=== PATIENT | male | born 1960 | race Caucasian/White ===

== ENCOUNTER 2022-11-29 15:38 | Emergency (ER) | payer OTHER, SELFPAY ==
--- NOTE | 2022-11-29 15:58 | XR_ITS ---
FINAL REPORT CLINICAL HISTORY: fall yesterday, lt rib pain FINDINGS: A PA view of the chest and oblique views of the left ribs were obtained. There is no prior exam for comparison. The cardiac and mediastinal silhouettes are within normal limits. There are low lung volumes. There is left basilar atelectasis. There is no pneumothorax. Oblique views of the left ribs reveal no displaced rib fracture. IMPRESSION: No acute left rib fracture and no pneumothorax. Reviewed, Interpreted and Dictated by Benita Patiño MD Transcribed by Chun Cohen Authenticated and [facility]
[2022-11-29 16:00] VITALS: BP 160/94; PULSE 81; RESP 20; TEMP 36.6; O2SAT 99; BMI 29.6
--- NOTE | 2022-11-29 16:32 | EXP.UTC ---
Discharge Plan Disposition Patient Disposition: Home, Self-Care Condition: Good Prescriptions Prescriptions: No Action hydrocodone-acetaminophen 1 TAB tablet 1 tab PO Q6HP PRN (Reason: Moderate To Severe Pain) Qty: 8 0RF atorvastatin 80 mg tablet 80 mg PO DAILY meloxicam 15 mg tablet 15 mg PO DAILY lisinopril 5 mg tablet 5 mg PO DAILY metformin 500 mg tablet extended release 24 hr 500 mg PO DAILY sildenafil (pulm.hypertension) 20 mg tablet 20 mg PO DAILY Referrals Follow up/Referrals: Salty Sadler MD [Primary Care Provider] - See instructions Activity Restrictions/Add. Instructions Additional Instructions/Restrictions: Take your prescribed pain medication as directed Follow up with your Family Doctor for further treatment and evaluation as discussed Cool compress to area may help with pain Use Incintive Spirometer as you was instructed in the [facility] Make sure to take deep breaths and cough to clear mucous Straight to ER if any life threatening symptoms Clinical Impressions Clinical Impression: Contusion of ribs Qualifiers: Encounter type: initial encounter Laterality: left Qualified Code(s): S20.212A - Contusion of left front wall of thorax, initial encounter Instructions Patient Instructions: How to Use an Incentive Spirometer, DI for Rib Contusion Discharge ED Provider: Keyla Jaime [facility] [place] HPI General Stated complaint: AO 11/28@0830 Fell injured Left ribs Mode of Arrival: Ambulatory Source of Information: Patient Limitations: No Limitations Time Seen by Provider: 11/29/22 16:15 Description of Symptoms (Recalled from Triage Doc. by RN): Fell on couch arm at home yesterday and hurt left ribs HEENT Symptoms (Recalled from RN notes): No Resp Symptoms (Recalled from RN notes): No Skin Symptoms (Recalled from RN notes): No MS Symptoms (Recalled from RN notes): No Functional Status (Recalled from RN notes): n/a History of Present Illness Provider Complaint: Patient states that he lives in [facility] and tripped yesterday opening the fridge and fell States that he landed on the arm of the couch on his left ribs States that ever since falling has been having pain in his left ribs with cough and certain movements States that family was worried he may have broken a rib so he came in to get it checked Related Data Home Medications Medication Instructions Recorded Confirmed atorvastatin 80 mg tablet 80 mg PO DAILY High cholesterol 11/29/22 11/29/22 lisinopril 5 mg tablet 5 mg PO DAILY High blood pressure 11/29/22 11/29/22 meloxicam 15 mg tablet 15 mg PO DAILY Pain 11/29/22 11/29/22 metformin 500 mg tablet,extended 500 mg PO DAILY Diabetes 11/29/22 11/29/22 release 24 hr sildenafil (pulm.hypertension) 20 20 mg PO DAILY . 11/29/22 11/29/22 mg tablet Previous Rx's Medication Instructions Recorded hydrocodone 5 mg-acetaminophen 325 1 tab PO Q6HP PRN Moderate To // mg tablet Severe Pain #8 tabs Allergies Allergy/AdvReac Type Severity Reaction Status Date / Time azithromycin Allergy Verified 11/29/22 16:09 erythromycin base Allergy Verified 11/29/22 16:09 Worker's Comp Is this a Worker's Comp case?: No [facility] Disclaimer: The information contained in this section may have been updated after the patient was seen, as this information can be updated by other users. Social History Smoking Status: Unknown if ever smoked alcohol intake: never current occupational status: employed Travel in the last 8 weeks: None ROS Obtained: Yes All systems reviewed & no additional complaints except as documented and Yes Systems reviewed as appropriate & no additional complaints except as documented ENT Ears, Nose, Mouth, and Throat: Reports system reviewed and no additional complaints, except as documented and Reports as per HPI Cardiovascular Cardiovascular: Reports system reviewed and no additional complaints
[2022-11-29 17:35] VITALS: BP 160/94; PULSE 81; RESP 20; TEMP 36.6; O2SAT 99
== END 2022-11-29 17:40 | disposition home or self-care (01) ==
PROVIDERS: Emergency Provider Nurse Practitioner; PCP Family Medicine
DX: S20.212A Contusion of left front wall of thorax, initial encounter (principal); W01.198A Fall on same level from slipping, tripping and stumbling with subsequent striking against other object, initial encounter
CPT/HCPCS: 71101; 99212; 99213; G0463

== ENCOUNTER 2023-08-30 12:24 | Observation (INO) | payer MEDICARE, OTHER, SELFPAY ==
[2023-08-30] VITALS (14 sets, daily range): BP systolic 105–170; BP diastolic 65–103; PULSE 76–93; RESP 11–18; TEMP 36.4–36.8; O2SAT 92–97; BMI 30.1; BMI 30.8
--- NOTE | 2023-08-30 12:21 | ECG_ITS ---
APPROVED REPORT Exam: Resting ECG HR:94 bpm ECG Measurements Heart Rate 94 AXES WY 174 P 67 QRSd 92 QRS 94 QT 343 T 56 QTc 395 Conclusion SINUS RHYTHM WITH SINUS ARRHYTHMIA BORDERLINE RIGHT AXIS DEVIATION [QRS AXIS > 90] BORDERLINE ECG UNCONFIRMED REPORT Electronically signed by : Ernesto Abarca MD 09/01/2023 08:02:27
--- NOTE | 2023-08-30 12:26 | XR_ITS ---
FINAL REPORT CLINICAL HISTORY: CP COMPARISON: 11/29/2022 FINDINGS: SINGLE-VIEW CHEST The heart size is normal. The mediastinum is normal. The lungs are clear. There is no pneumothorax. IMPRESSION: No acute cardiopulmonary process. Reviewed, Interpreted and Dictated by César Lopez MD Transcribed by Halie Mars Authenticated and [facility]
--- NOTE | 2023-08-30 12:27 | HMH.EDGENADL ---
Discharge Plan Disposition Patient Disposition: Admitted Condition: Fair Clinical Impressions Clinical Impression: Angina pectoris, unstable, Hyperglycemia Discharge ED Provider: Dinesh Cabrera General Adult HPI General Chief complaint: Chest Pain Stated complaint: chest pain Time Seen by Provider: 08/30/23 12:26 History of Present Illness HPI narrative: Patient is a 65-year-old male with past medical history of hypertension, hyperlipidemia who presents emergency department for evaluation of chest pain. Onset was subacute over the last 3 to 4 weeks, substernal radiating down his left arm, intermittent, moderate to severe in intensity. It occurs both at rest and exertion. No other acute complaints at this time. Related Data Home Medications Medication Instructions Recorded Confirmed atorvastatin 80 mg tablet 80 mg PO DAILY High cholesterol 11/29/22 08/30/23 lisinopril 5 mg tablet 5 mg PO DAILY High blood pressure 11/29/22 08/30/23 meloxicam 15 mg tablet 15 mg PO DAILY Pain 11/29/22 08/30/23 metformin 500 mg tablet,extended 500 mg PO DAILY Diabetes 11/29/22 08/30/23 release 24 hr sildenafil (pulm.hypertension) 20 20 mg PO DAILY 11/29/22 08/30/23 mg tablet aspirin 81 mg tablet,delayed 81 mg PO DAILY 08/30/23 08/30/23 release diphenhydramine HCl 12.5 mg/5 mL 12.5 mg PO HS PRN Sleep 08/30/23 08/30/23 oral elixir gabapentin 400 mg capsule 400 mg PO DAILY 08/30/23 08/30/23 magnesium 200 mg tablet 400 mg PO DAILY 08/30/23 08/30/23 melatonin 10 mg tablet 10 mg PO HS PRN Sleep 08/30/23 08/30/23 omeprazole 40 mg capsule,delayed 40 mg PO DAILY 08/30/23 08/30/23 release tizanidine 2 mg capsule 15 mg PO HS 08/30/23 08/30/23 Previous Rx's Medication Instructions Recorded hydrocodone 5 mg-acetaminophen 325 1 tab PO Q6HP PRN Moderate To 10/14/19 mg tablet Severe Pain #8 tabs Allergies Allergy/AdvReac Type Severity Reaction Status Date / Time azithromycin Allergy Verified 08/30/23 12:36 erythromycin base Allergy Verified 08/30/23 12:36 [facility] Disclaimer: The information contained in this section may have been updated after the patient was seen, as this information can be updated by other users. Social History (Updated 11/29/22 @ 17:54 by Keyla Jaime APRN) Smoking Status: Never smoker alcohol intake: never current occupational status: employed Travel in the last 8 weeks: None ROS Obtained: Yes Systems reviewed as appropriate & no additional complaints except as documented Physical Exam General General appearance: alert and in no apparent distress Head Head exam: atraumatic and normocephalic Eye Eye exam: Present PERRL and EOMI ENT ENT exam: Present mucous membranes moist Neck Neck exam: Present normal inspection Chest Chest inspection: Present normal inspection and symmetric chest wall rise Respiratory Respiratory exam: Present normal lung sounds bilaterally; Absent respiratory distress Cardiovascular Cardiovascular exam: Present regular rate and normal rhythm Abdominal Exam Abdominal exam: Present soft Extremities Exam Extremities exam: Present normal inspection Neurological Exam Neurological exam: Present alert Psychiatric Psychiatric exam: Present normal affect Skin Skin exam: Present warm and dry Medical Decision Making Derrick Inquiry Pt receiving controlled substance: No Vital Signs: 08/30/23 12:25 08/30/23 12:28 08/30/23 12:30 Temperature 98.3 F Temperature Source Oral Pulse Rate 92 H 91 H Pulse Rate [Left Radial] 93 H Respiratory Rate 16 16 18 Blood Pressure 159/102 H 131/96 H Blood Pressure [Right Arm] 170/103 H Blood Pressure Mean 121 107 Blood Pressure Mean [Right Arm] 125 Blood Pressure Source Blood Pressure Source [Right Arm] Automatic Cuff Blood Pressure Position Blood Pressure Position [Right Arm] Sitting 02 Sat by Pulse Oximetry 96 96 94 L Oxygen Delivery Method Room Air 08/30/23 13:00 08/30/23 13:15 08/30/23 13:30 Temperature Temperature Source Pulse Rate 91 H 87 89 Pulse Rate [Left Radial] Respiratory Rate 11 L 16 11 L Blood Pressure 121/81 106/70 L 105/77 L Blood Pressure [Right Arm] Blood Pressure Mean 82 Blood Pressure Mean [Right Arm] Blood Pressure Source Blood Pressure Source [Right Arm] Blood Pressure Position Blood Pressure Position [Right Arm] 02 Sat by Pulse Oximetry 93 L 92 L 93 L Oxygen Delivery Method Room Air Room Air 08/30/23 13:45 08/30/23 14:00 08/30/23 14:15 Temperature Temperature Source Pulse Rate 86 86 83 Pulse Rate [Left Radial] Respiratory Rate 16 16 Blood Pressure 117/65 117/80 125/73 Blood Pressure [Right Arm] Blood Pressure Mean 83 92 84 Blood Pressure Mean [Right Arm] Blood Pressure Source Blood Pressure Source [Right Arm] Blood Pressure Position Blood Pressure Position [Right Arm] 02 Sat by Pulse Oximetry 94 L 92 L 93 L Oxygen Delivery Method 08/30/23 14:30 08/30/23 15:00 Temperature 98.2 F Temperature Source Oral Pulse Rate 79 82 Pulse Rate [Left Radial] Respiratory Rate 18 Blood Pressure 132/80 128/79 Blood Pressure [Right Arm] Blood Pressure Mean 89 Blood Pressure Mean [Right Arm] Blood Pressure Source Automatic Cuff Blood Pressure Source [Right Arm] Blood Pressure Position Sitting Blood Pressure Position [Right Arm] 02 Sat by Pulse Oximetry 93 L Oxygen Delivery Method Room Air Lab Data Lab Results 08/30/23 12:30: WBC 8.2, RBC 5.19, Hgb 16.7, Hct 47.5, MCV 91.6, MCH 32.2 H, MCHC 35.2, RDW 13.3, Plt Count 198, MPV 9.1, Neut % (Auto) 53.4, Lymph % (Auto) 34.9, [place] % (Auto) 4.3, Eos % (Auto) 6.7, Baso % (Auto) 0.7, Neut # (Auto) 4.4, Lymph # (Auto) 2.9, [place] # (Auto) 0.4, Eos # (Auto) 0.6 H, Baso # (Auto) 0.1, Sodium 134 L, Potassium 3.8, Chloride 100, Carbon Dioxide 25, Anion Gap 12.8, BUN 16, Creatinine 0.90, Estimated Creat Clear 91, Estimated GFR 84, Est GFR ( Amer) 102, Glucose 265 H, Calcium 9.4, Total Bilirubin 1.1, AST 67 H, ALT 51, Alkaline Phosphatase 63, Troponin I < 0.01, Total Protein 8.5 H, Albumin 5.1 H, Globulin 3.4 H, Albumin/Globulin Ratio 1.5 08/30/23 12:30 08/30/23 12:30 Orders (Tests/Meds): ED MEDICATIONS Generic Name Dose Route Start Last Admin Trade Name Freq PRN Reason Stop Dose Admin Aspirin 81 mg 08/31/23 09:00 Aspirin Ec 81mg Tablet PO 09/30/23 08:59 DAILY VAISHNAVI Atorvastatin Calcium 80 mg 12/27/23 21:00 Atorvastatin 40mg Tablet PO 09/29/23 20:59 HS VAISHNAVI Carvedilol 3.125 mg 08/30/23 21:00 Carvedilol 3.125mg Tablet PO 09/29/23 20:59 BID VAISHNAVI Enoxaparin Sodium 90 mg 08/30/23 14:15 Enoxaparin 100mg/Ml Syringe 1 mg/kg (90 mg) 09/29/23 14:14 SQ Q12H VAISHNAVI Nitroglycerin 0.4 mg 08/30/23 12:26 08/30/23 12:42 Nitroglycerin 0.4mg Sl Tablet SL 09/29/23 12:25 0.4 mg Q5MINP PRN Administration Chest Pain Discontinued Medications Generic Name Dose Route Start Last Admin Trade Name Freq PRN Reason Stop Dose Admin Aspirin 324 mg 08/30/23 12:26 08/30/23 12:42 Aspirin 81mg Chewable Tablet PO 08/30/23 12:27 324 mg ONCE ONE Administration Diphenhydramine HCl 50 mg 08/30/23 13:59 Diphenhydramine 50mg/Ml Vial IV 08/30/23 14:00 ONCE ONE Morphine Sulfate 4 mg 08/30/23 12:26 08/30/23 12:42 Morphine 4mg/Ml Syringe IV 08/30/23 12:27 4 mg ONCE ONE Administration ORDERS Category Date Time Status Cardiology Consult [Consult to Cardiology] [CONS] Stat Cons 08/30/23 13:34 Active Consult to Cardiology [CONS] Routine Cons 08/30/23 14:03 Active CXR --portable [XR chest portable] Stat Exams 08/30/23 12:26 Completed CBC w/Auto Diff [Complete Blood Count Auto Diff] Stat Lab 08/30/23 12:30 Completed CMP [Comprehensive Metabolic Panel] Stat Lab 08/30/23 12:30 Completed Complete Blood Count Auto Diff AMLAB Lab 08/31/23 06:00 Ordered Comprehensive Metabolic Panel AMLAB Lab 08/31/23 06:00 Ordered Magnesium AMLAB Lab 08/31/23 06:00 Ordered Trop I [Troponin I] Stat Lab 08/30/23 12:30 Completed Troponin I Q3H Lab 08/30/23 15:37 Received Troponin I Q3H Lab 08/30/23 18:30 Ordered CA echo doppler complete Routine Y 08/30/23 14:01 Completed ECG initial [place] Routine Y 08/30/23 12:21 Completed ECG Data Tracing #1: Independently interpreted by me, rate is 94, rhythm is regular, axis is rightward deviated, no ST elevation in anatomical contiguous leads, QTc 395. HEART Score History (anamnesis): Highly suspicious ECG: Non-specific disturbance Age: 45-65 years Risk factors: 1-2 risk factors Troponin: </= normal limit HEART Score: 5 Medical Decision Narrative: In summary patient is a 65-year-old male with past medical history described above presents emergency department for evaluation of chest pain. Patient is hemodynamically stable nontoxic-appearing upon arrival, afebrile. Differential diagnosis includes ACS, cardiac chest pain, noncardiac chest pain, among others. Workup will be conducted with hematologic labs, chest x-ray, EKG, troponin. Initial interventions include nitroglycerin, aspirin, morphine. Initial workup reviewed by me, hematologic labs show no leukocytosis, elevated blood glucose. Initial troponin is nonactionable. Upon repeat evaluation patient had significant improvement of his pain status post pharmacologic intervention. The case was discussed with cardiology and they evaluated patient and deemed he would benefit from urgent heart catheterization. The case was discussed with hospital medicine who admit the patient to their service for continued evaluation at this time. Critical Care Critical Care Time Critical Care Time: No
[2023-08-30 12:42] LABS: Basophils # 0.1 K/mm3 (0-0.2); Basophils % 0.7 % (0.1-2.0); Eosinophils # 0.6 K/mm3 (0.0-0.4); Eosinophils % 6.7 % (0.1-12.0); Hematocrit 47.5 % (42.0-52.0); Hemoglobin 16.7 g/dL (14.1-18.0); Lymphocytes # 2.9 K/mm3 (0.7-4.5); Lymphocytes % 34.9 % (10-50); Mean Corpuscular HGB Conc 35.2 g/dL (31.8-35.4); Mean Corpuscular Hemoglobin 32.2 pg (27.0-31.2); Mean Corpuscular Volume 91.6 fl (80-94); Mean Platelet Volume 9.1 fl (7.4-10.4); Monocytes # 0.4 K/mm3 (0.1-1.0); Monocytes % 4.3 % (1.7-9.3); Neutrophils # 4.4 K/mm3 (1.8-7.8); Neutrophils % 53.4 % (37.0-80.0); Platelet Count 198 K/mm3 (142-424); Red Blood Count 5.19 M/mm3 (4.60-6.20); Red Cell Distribution Width 13.3 % (11.5-17.5); White Blood Count 8.2 K/mm3 (4.8-10.8)
[2023-08-30] MEDS: ASPIRIN 81MG CHEWABLE TABLET 324 MG PO (12:42)
[2023-08-30] MEDS: NITROGLYCERIN 0.4MG SL TABLET 0.400000000000000022 MG SL ×2 (12:42→19:43)
[2023-08-30] MEDS: MORPHINE 4MG/ML SYRINGE 4 MG IV (12:42)
[2023-08-30 13:05] LABS: Alanine Aminotransferase 51 U/L (12-78); Albumin Level 5.1 g/dl (3.5-5.0); Albumin/Globulin Ratio 1.5 (1.1-1.8); Alkaline Phosphatase 63 U/L (38-126); Anion Gap 12.8 mEq/L (5-15); Aspartate Amino Transferase 67 U/L (17-59); Bilirubin,Total 1.1 mg/dl (0.2-1.3); Blood Urea Nitrogen 16 mg/dl (9-20); Calcium 9.4 mg/dl (8.4-10.2); Carbon Dioxide 25 mmol/L (22.0-30.0); Chloride 100 mmol/L (98-107); Creatinine Clearance Estimated 91 mL/min (50-200); Estimated Glomerular Filt Rate 84 ml/min (>60); GFR (African American) 102 ML/MIN (>60); Globulin 3.4 g/dL (1.3-3.2); Glucose 265 mg/dl (74-100); Potassium 3.8 mmoL/L (3.5-5.1); Sodium 134 mmol/L (136-145); Total Protein,Serum 8.5 g/dl (6.3-8.2)
--- NOTE | 2023-08-30 13:09 | PC.NURSE ---
PORTABLE XRAY AT BEDSIDE
[2023-08-30 13:18] LABS: Troponin I < 0.01 ng/ml (0.00-0.034)
--- NOTE | 2023-08-30 13:20 | PC.NURSE ---
pt states NTG has helped PS 10/14
--- NOTE | 2023-08-30 13:49 | PC.NURSE ---
POPEYE SHARPE FROM CARDS AT BEDSIDE
--- NOTE | 2023-08-30 14:01 | CA_ITS ---
APPROVED REPORT EXAM: Comprehensive 2D, Doppler, and color-flow Echocardiogram Bottle Carrier: Krystyna Hendricks RVT Ht: 5 ft 8 in Wt: 198lbs BSA: 2.03 BP: 198/89 mmHg Indications: CP,HTN,HLD 2D Dimensions LA Volume 34.20 mL LA Volume Index 16.76 mL/m2 (M/F) 16-34 M-Mode Dimensions RVDd 3.10 cm (0.9-2.6) LA Diam 3.55 cm (1.9-4.0) LVDd 3.82 cm (3.5-5.7) LVDs 2.70 cm (3.5-5.7) IVSd 1.73 cm (0.6-1.1) PWd 0.52 cm (0.6-1.1) EF (Teich) 56.90% FS 29.30% EDV (Teich) 62.70 mL TAPSE 2.17 (<1.7) ESV (Teich) 27.00 mL LV Diastology E Decel Time 290 (160-240 msec) E/A Ratio 0.9 Aortic Valve ANNA Index 1.66 cm2/m2 AoV Peak Rush. 129.0 (50-130 cm/s) AO Peak GR. 6.60 mmHg AO Mean GR. 3.80 (<5 mmHg) AO VTI 22.1 (18-25 cm) ANNA (VTI) 3.45 (2.5-4.5 cm2) Mitral Valve MV E Max Rush. 64.0 (40-130 cm/s) MV A Velocity 72.0 (40-130 cm/s) E/A Ratio 0.89 MV PHT 85.0 ms Pulmonary Valve PV Peak Velocity 89.0 (50-150 cm/s) Left Ventricle The left ventricle is normal size. The left ventricular systolic function is normal. The left ventricular ejection fraction is within the normal range. There is increased LV wall thickness. Regional wall motion is difficult to estimate due to technically difficult study, but grossly no obvious wall motion abnormalities are noted. The left ventricular diastolic function is normal. LVEF is 55%. Right Ventricle The right ventricle is mildly dilated. The right ventricular systolic function is normal. Atria The left atrium size is normal. The right atrium size is normal. There is no Doppler evidence of interatrial shunt. Aortic Valve The aortic valve is mildly thickened. There is no aortic valvular stenosis. Trace aortic regurgitation. Mitral Valve The mitral valve leaflets are mildly thickened. No evidence of mitral valve stenosis. Trace mitral regurgitation. Tricuspid Valve The tricuspid valve leaflets are thin and pliable. Trace tricuspid regurgitation. There is insufficient TR jet to estimate RVSP. Pulmonic Valve The pulmonary valve is normal in structure. Trace pulmonic regurgitation. Great Vessels The aortic root is normal in size. The ascending aorta is not well-visualized. IVC is normal in size and collapses >50% with inspiration. Pericardium There is no pericardial effusion. Other Information Study Quality: Technically Difficult Conclusion Technically difficult study due to poor acoustic windows. Normal biventricular systolic function. Mild RV dilation. No significant valvular stenosis or regurgitation. Electronically signed by : July Diaz MD 08/31/2023 09:13:00
--- NOTE | 2023-08-30 14:52 | P.CONCA_ITS ---
History of Present Illness History of Present Illness Consult date: 08/30/23 Requesting physician: Daniel Bell Consult reason: chest pain Chief complaint: chest pain History of present illness: 63-year-old white male with past medical history of hypertension and hyperlipidemia presented to emergency department today with complaints of 2 weeks of intermittent chest pain progressive and worsening in nature. Patient reports that 2 weeks ago had an episode of severe midsternal chest pressure radiating to the left arm associated with shortness of breath. Reports did not go to the ER at that time. Since then has had intermittent episodes of chest pain often with activity and at rest that is relieved with nitroglycerin. Patient reports he is using 2-3 nitro a day for chest pain. Continues to have o ngoing shortness of breath with exertion since initial event a few weeks ago. Upon presentation to ER EKG was normal sinus rhythm rate of 94 without acute ischemic changes noted. Labs as follow: WBC 8.2, hemoglobin 16.7, sodium 134, potassium 3.8, creatinine 0.9, troponin 0.01. Patient reports has a strong family history of coronary artery disease with both mother and father dying from MIs and brother and sister both requiring stenting. Denies current or former smoker, reports uses tobacco chew. Given atient's medical history and symptoms patient will be admitted for unstable angina and we will proceed with left heart catheterization. Discussed risk versus benefits with patient and he is agreeable. Echocardiogram is pending. [facility] Disclaimer: The information contained in this section may have been updated after the patient was seen, as this information can be updated by other users. Social History (Updated 11/29/22 @ 17:54 by Keyla Jaime APRN) Smoking Status: Never smoker alcohol intake: never current occupational status: employed Travel in the last 8 weeks: None Review of Systems Review of Systems Review of systems:: pertinent systems reviewed and negative unless documented below Constitutional Constitutional: Reports system reviewed and no additional complaints, except as documented *Cardiovascular Cardiovascular: Reports chest pain and Reports dyspnea *Respiratory Respiratory: Reports system reviewed and no additional complaints, except as d ocumented and Reports dyspnea *Gastrointestinal Gastrointestinal: Reports system reviewed and no additional complaints, except as documented *Neurologic Neurologic: Reports system reviewed and no additional complaints, except as documented and Denies confusion Psychiatric Psychiatric: Reports system reviewed and no additional complaints, except as documented and Denies confusion Exam Data for Last 24 hours Vital signs and Labs for Last 24 Hours: Temp Pulse Resp BP Pulse Ox O2 Del Method 98.3 F 79 16 132/80 93 L Room Air 08/30/23 12:25 08/30/23 14:30 08/30/23 14:00 08/30/23 14:30 08/30/23 14:30 08/30/23 13:30 Laboratory Results - last 24 hr 08/30/23 12:30: WBC 8.2, RBC 5.19, Hgb 16.7, Hct 47.5, MCV 91.6, MCH 32.2 H, MCHC 35.2, RDW 13.3, Plt Count 198, MPV 9.1, Neut % (Auto) 53.4, Lymph % (Auto) 34.9, [place] % (Auto) 4.3, Eos % (Auto) 6.7, Baso % (Auto) 0.7, Neut # (Auto) 4.4, Lymph # (Auto) 2.9, [place] # (Auto) 0.4, Eos # (Auto) 0.6 H, Baso # (Auto) 0.1, Sodium 134 L, Potassium 3.8, Chloride 100, Carbon Dioxide 25, Anion Gap 12.8, BUN 16, Creatinine 0.90, Estimated Creat Clear 91, Estimated GFR 84, Est GFR ( Amer) 102, Glucose 265 H, Calcium 9.4, Total Bilirubin 1.1, AST 67 H, ALT 51, Alkaline Phosphatase 63, Troponin I < 0.01, Total Protein 8.5 H, Albumin 5.1 H, Globulin 3.4 H, Albumin/Globulin Ratio 1.5 I & O for Last 24 hours: Intake & Output 08/27/23 08/28/23 08/29/23 08/30/23 23:59 23:59 23:59 23:59 Weight 198 lb Constitutional Constitutional: no acute distress *Routine Respiratory Exam Respiratory: Present CTA bilaterally and symmetric chest movement *Routine Cardiovascular Exam Cardiovascular: Present RRR, Normal S1 and Normal S2 *Routine Abdominal Exam Abdominal: Present soft and normoactive bowel sounds; Absent tenderness *Routine Extremities Exam Extremities: Present full ROM and normal capillary refill; Absent edema *Routine Skin Exam Skin: Present intact, dry and warm Detailed Neck Exam: Thyroids Thyroid: Absent bruit Meds Home Medications and Allergies Home Medications Medication Instructions Recorded Confirmed Type hydrocodone 5 mg-acetaminophen 325 1 tab PO Q6HP PRN Moderate To 06/17/19 08/30/23 Rx mg tablet Severe Pain #8 tabs atorvastatin 80 mg tablet 80 mg PO DAILY High cholesterol 11/29/22 08/30/23 History lisinopril 5 mg tablet 5 mg PO DAILY High blood pressure 11/29/22 08/30/23 History meloxicam 15 mg tablet 15 mg PO DAILY Pain 11/29/22 08/30/23 History metformin 500 mg tablet,extended 500 mg PO DAILY Diabetes 11/29/22 08/30/23 History release 24 hr sildenafil (pulm.hypertension) 20 20 mg PO DAILY . 11/29/22 08/30/23 History mg tablet gabapentin 400 mg capsule 400 mg PO DAILY 08/30/23 08/30/23 History omeprazole 40 mg capsule,delayed 40 mg PO DAILY 08/30/23 08/30/23 History release New Prescriptions to Start Prescriptions: Allergies Allergy/AdvReac Type Severity Reaction Status Date / Time azithromycin Allergy Verified 08/30/23 12:36 erythromycin base Allergy Verified 08/30/23 12:36 Assessment and Plan *Assessment and plan (1) Unstable angina: Status: Acute Category: Medical Code(s): I20.0 - Unstable angina (2) HTN (hypertension): Status: Acute Category: Medical Code(s): I10 - Essential (primary) hypertension (3) Hyperlipidemia: Status: Acute Category: Medical Code(s): E78.5 - Hyperlipidemia, unspecified Plan Unstable angina CCS 3 -Will proceed with left heart catheterization tomorrow morning 08/31/2023. D iscussed risk versus benefits with patient he is agreeable -Patient will be loaded with aspirin 324 mg p.o. and given Lovenox 1 mg/kg twice daily. Start Coreg 3.125 mg p.o. twice daily and continue atorvastatin 80 mg p.o. daily. -Echocardiogram pending Hypertension -Well-controlled. Continue lisinopril 5 mg p.o. daily Hyperlipidemia -Continue atorvastatin 80 mg p.o. daily CV summary 08/30/2023: We will proceed with left heart catheterization tomorrow for unstable angina. Please continue meds as listed above.
--- NOTE | 2023-08-30 15:01 | PC.NURSE ---
CALLED REPORT TO DALLAS CORDOBA
--- NOTE | 2023-08-30 15:08 | PC.NURSE ---
arrived by w/c from ED
--- NOTE | 2023-08-30 15:16 | EXP.HP ---
History of Present Illness *Admission Date: 08/30/23 *Reason for visit:: chest pain *History of present illness: Mr. Mary is a 63-year-old male with history significant for hypertension and hyperlipidemia. He presented to the ER complaining of some worsening intermittent chest pain over the past few weeks. On further questioning he reports she actually had pain as remote as a year ago with an episode a month ago who referred to his left arm but resolved and he has not sought treatment prior. Describes the pain is midsternal was in association with shortness of breath pain most common with activity that is relieved by nitroglycerin. Denies any nausea, vomiting, syncope. Workup in the ER with unremarkable EKG, initial troponin negative. Labs fairly unremarkable with no acute abnormalities. Patient reports significant family history of coronary artery disease with both his parents dying from MIs. Denies smoking but does chew regularly. Given his nature of unstable angina and characteristic chest pain, medicine was consulted for admission and cardiology consulted for further evaluation. On arrival to the floor, patient states his chest pain is little bit better. He is eating dinner. Stable on room air [facility] Disclaimer: The information contained in this section may have been updated after the patient was seen, as this information can be updated by other users. Social History Smoking Status: Never smoker alcohol intake: never current occupational status: employed Travel in the last 8 weeks: None Review of Systems Review of Systems Review of systems (narrative): 14 point review of systems performed, pertinent positives and negatives as per HPI *Neurologic Neurologic: Reports system reviewed and no additional complaints, except as documented and Denies confusion Psychiatric Psychiatric: Denies confusion Meds Home Medications and Allergies Home Medications Medication Instructions Recorded Confirmed Type hydrocodone 5 mg-acetaminophen 325 1 tab PO Q6HP PRN Moderate To 06/17/19 08/30/23 Rx mg tablet Severe Pain #8 tabs atorvastatin 80 mg tablet 40 mg PO DAILY High cholesterol 11/29/22 08/30/23 History lisinopril 5 mg tablet 5 mg PO DAILY High blood pressure 11/29/22 08/30/23 History meloxicam 15 mg tablet 15 mg PO HS Pain 11/29/22 08/30/23 History metformin 500 mg tablet,extended 500 mg PO HS Diabetes 11/29/22 08/30/23 History release 24 hr aspirin 81 mg tablet,delayed 81 mg PO DAILY 08/30/23 08/30/23 History release diphenhydramine HCl 12.5 mg/5 mL 12.5 mg PO HS PRN Sleep 08/30/23 08/30/23 History oral elixir gabapentin 400 mg capsule See Rx Instructions .Route .COMPLEX 08/30/23 08/30/23 History magnesium 200 mg tablet 400 mg PO DAILY 08/30/23 08/30/23 History melatonin 10 mg tablet 10 mg PO HS PRN Sleep 08/30/23 08/30/23 History omeprazole 40 mg capsule,delayed 40 mg PO DAILY 08/30/23 08/30/23 History release tizanidine 2 mg capsule 15 mg PO HS 08/30/23 08/30/23 History New Prescriptions to Start Prescriptions: Allergies Allergy/AdvReac Type Severity Reaction Status Date / Time azithromycin Allergy Verified 08/30/23 12:36 erythromycin base Allergy Verified 08/30/23 12:36 Exam Data for Last 24 hours Vital signs and Labs for Last 24 Hours: Temp Pulse Resp BP Pulse Ox O2 Del Method 98.2 F 82 18 128/79 93 L Room Air 08/30/23 15:00 08/30/23 15:00 08/30/23 15:00 08/30/23 15:00 08/30/23 14:30 08/30/23 15:00 Laboratory Results - last 24 hr 08/30/23 12:30: WBC 8.2, RBC 5.19, Hgb 16.7, Hct 47.5, MCV 91.6, MCH 32.2 H, MCHC 35.2, RDW 13.3, Plt Count 198, MPV 9.1, Neut % (Auto) 53.4, Lymph % (Auto) 34.9, [place] % (Auto) 4.3, Eos % (Auto) 6.7, Baso % (Auto) 0.7, Neut # (Auto) 4.4, Lymph # (Auto) 2.9, [place] # (Auto) 0.4, Eos # (Auto) 0.6 H, Baso # (Auto) 0.1, Sodium 134 L, Potassium 3.8, Chloride 100, Carbon Dioxide 25, Anion Gap 12.8, BUN 16, Creatinine 0.90, Estimated Creat Clear 91, Estimated GFR 84, Est GFR ( Amer) 102, Glucose 265 H, Calcium 9.4, Total Bilirubin 1.1, AST 67 H, ALT 51, Alkaline Phosphatase 63, Troponin I < 0.01, Total Protein 8.5 H, Albumin 5.1 H, Globulin 3.4 H, Albumin/Globulin Ratio 1.5 I & O for Last 24 hours: Intake & Output 08/27/23 08/28/23 08/29/23 08/30/23 23:59 23:59 23:59 23:59 Weight 89.811 kg Constitutional Constitutional: no acute distress and obese *Routine HEENT Exam Head: Present normocephalic Eye: Present EOMI and PERRL ENT: Present mucous membranes moist *Routine Neck Exam Neck: Present supple; Absent lymphadenopathy *Routine Respiratory Exam Respiratory: Present CTA bilaterally *Routine Cardiovascular Exam Cardiovascular: Present RRR *Routine Abdominal Exam Abdominal: Present soft and normoactive bowel sounds; Absent tenderness *Routine Rectal Exam Rectal:: deferred *Routine Genitalia Exam Genitalia:: deferred *Routine Extremities Exam Extremities: Absent cyanosis, clubbing or edema *Routine Skin Exam Skin: Present warm; Absent rash *Routine Neurological Exam Neurological: Present alert, oriented X3 and moving all extremities; Absent altered mental status Assessment and Plan *Assessment and plan (1) Angina pectoris, unstable: Status: Acute Category: Medical Code(s): I20.0 - Unstable angina (2) HTN (hypertension): Status: Acute Category: Medical Code(s): I10 - Essential (primary) hypertension (3) Hyperlipidemia: Status: Acute Category: Medical Code(s): E78.5 - Hyperlipidemia, unspecified (4) Hyperglycemia: Status: Acute Category: Medical Code(s): R73.9 - Hyperglycemia, unspecified Plan 63-year-old male history of hypertension who presents with unstable angina. Discussed case with ER physician, request admission for cardiology workup and further management. Patient will need serial troponins. Medicine agreed to admit for further management. Cardiology consulted. Problems addressed as follows: Unstable angina Hypertension Hyperlipidemia -Cardiology consulted, appreciate their recommendations. Planning for left heart cath tomorrow. Patient symptoms are highly suggestive of coronary artery disease. Significant family history. CCS of 3. -Patient loaded with aspirin 325 mg daily, continue 85 mg daily. Given Lovenox 1 mg/kg twice daily. Start carvedilol 3.125 mg twice daily. -Continue home Lipitor 80 mg daily -Echocardiogram obtained, formal read pending -Pressures at this time, continue lisinopril 5 mg daily Hyperglycemia -Glucose 265 on initial labs - On metformin at home, history of hyperglycemia. A1c and TSH pending Full code Cardiac diet, n.p.o. at midnight Therapeutic Lovenox
[2023-08-30 16:18] LABS: Troponin I < 0.01 ng/ml (0.00-0.034)
--- NOTE | 2023-08-30 16:29 | HMH.PHAINT1 ---
Pharmacy Intervention Comments: Home med list verified with patient at bedside, spouse via phone, and with external pharmacy list.
[2023-08-30] MEDS: ENOXAPARIN 100MG/ML SYRINGE 90 MG SQ (18:06)
--- NOTE | 2023-08-30 18:24 | PC.NURSE ---
Patient new admit from er with chest pain. patient A&Ox4 and vss
[2023-08-30 18:26] LABS: Thyroid Stimulating Hormone 0.44 uIU/mL (0.465-4.68)
[2023-08-30 19:19] LABS: Troponin I < 0.01 ng/ml (0.00-0.034)
[2023-08-30 20:06] LABS: POC Glucose,Bedside 223 (70-110)
[2023-08-30] MEDS: ATORVASTATIN 40MG TABLET 80 MG PO (20:21)
[2023-08-30] MEDS: MELATONIN 10 MG 10 EACH PO (20:22)
[2023-08-30] MEDS: CARVEDILOL 3.125MG TABLET 3.125 MG PO (20:23)
[2023-08-30] MEDS: GABAPENTIN 400MG CAPSULE 400 MG PO (20:23)
[2023-08-30] MEDS: PATIENT'S OWN HOME MEDICATION (Metformin 500 mg tablet extended release 24 hr) 500 EACH PO (20:24)
--- NOTE | 2023-08-30 21:42 | PC.NURSE ---
RECEIVED ONE 0.4 S.L. NITRO AT 1942 AND RECEIVED COMPLETE RELIEF FROM DULL ACHING LEFT CHEST 12/12.
[2023-08-31] VITALS (14 sets, daily range): BP systolic 102–133; BP diastolic 74–93; PULSE 75–100; RESP 16–18; TEMP 36.1–36.9; O2SAT 93–100; BMI 30.3
[2023-08-31] MEDS: ENOXAPARIN 100MG/ML SYRINGE 90 MG SQ (02:35)
--- NOTE | 2023-08-31 04:43 | PC.NURSE ---
NO FURTHER REPORTS OF CP. NO SOA OR DISCOMFORT NOTED. HAS BEEN NPO SINCE GA FOR LEFT CARDIAC CATH. CONSENT SIGNED.
[2023-08-31 05:18] LABS: POC Glucose,Bedside 146 (70-110)
[2023-08-31 06:32] LABS: Basophils % 0.4 % (0.1-2.0); Eosinophils # 0.6 K/mm3 (0.0-0.4); Eosinophils % 6.4 % (0.1-12.0); Hematocrit 43.7 % (42.0-52.0); Hemoglobin 15.7 g/dL (14.1-18.0); Lymphocytes % 35.3 % (10-50); Mean Corpuscular HGB Conc 35.8 g/dL (31.8-35.4); Mean Corpuscular Hemoglobin 32.6 pg (27.0-31.2); Mean Corpuscular Volume 91.1 fl (80-94); Mean Platelet Volume 9.3 fl (7.4-10.4); Monocytes # 0.5 K/mm3 (0.1-1.0); Monocytes % 5.9 % (1.7-9.3); Neutrophils # 4.4 K/mm3 (1.8-7.8); Neutrophils % 51.9 % (37.0-80.0); Platelet Count 169 K/mm3 (142-424); Red Cell Distribution Width 13.3 % (11.5-17.5); White Blood Count 8.5 K/mm3 (4.8-10.8)
[2023-08-31 06:50] LABS: Chloride 104 mmol/L (98-107); Sodium 138 mmol/L (136-145)
[2023-08-31 06:51] LABS: Potassium 3.6 mmoL/L (3.5-5.1)
[2023-08-31 06:53] LABS: Alanine Aminotransferase 47 U/L (12-78); Albumin Level 4.4 g/dl (3.5-5.0); Albumin/Globulin Ratio 1.5 (1.1-1.8); Alkaline Phosphatase 62 U/L (38-126); Anion Gap 13.6 mEq/L (5-15); Aspartate Amino Transferase 63 U/L (17-59); Blood Urea Nitrogen 16 mg/dl (9-20); Calcium 8.9 mg/dl (8.4-10.2); Carbon Dioxide 24 mmol/L (22.0-30.0); Creatinine Clearance Estimated 94 mL/min (50-200); Estimated Glomerular Filt Rate 97 ml/min (>60); GFR (African American) 117 ML/MIN (>60); Globulin 2.9 g/dL (1.3-3.2); Glucose 150 mg/dl (74-100); Total Protein,Serum 7.3 g/dl (6.3-8.2)
[2023-08-31 06:54] LABS: Magnesium 1.9 mg/dl (1.6-2.3)
--- NOTE | 2023-08-31 07:17 | IR_ITS ---
APPROVED REPORT Patient Location: Inpatient Feeder Loader: MANUELA Quiros RT (R) PROCEDURES Left heart catheterization Left ventriculogram Selective coronary angiogram INDICATION Unstable angina Informed consent was obtained prior to the procedure. COMPLICATIONS NONE Estimated Blood Loss: LESS THAN 10 ML TECHNIQUE One percent lidocaine used to anesthetize the right anterior aspect of the wrist. The right radial artery was accessed via the Seldinger technique. A 6 [place] sheath was placed in the right radial artery. 2.5 mg of Verapamil, 800 mcg of nitroglycerin, 1mg Lidocaine and 5000 U Heparin were given through the arterial sheath. The papa catheter was also used to perform left heart catheterization, left ventriculogram and selective coronary angiogram. At the end of the procedure the sheath was removed good hemostasis was achieved using Traclet band, patient was transferred to the postop holding area in stable condition. ANGIOGRAPHIC RESULTS The left main artery Normal The left anterior descending artery Is proximally normal and has a mild mid vessel systolic 20 to 30% myocardial bridge The circumflex artery Nondominant normal The right coronary artery Dominant normal The BOYD ventriculogram reveals Normal The left ventricular end-diastolic pressure 15 mmHg IMPRESSION Mild mid vessel LAD myocardial bridge Otherwise normal coronary arteries Normal ejection fraction Normal left ventricular end-diastolic pressure PLAN 1. Medical management Electronically signed by : Babak Valentin MD 08/31/2023 14:32:42
[2023-08-31] MEDS: GABAPENTIN 400MG CAPSULE 400 MG PO (08:32)
[2023-08-31] MEDS: ASPIRIN EC 81MG TABLET 81 MG PO (08:32)
[2023-08-31] MEDS: LISINOPRIL 5MG TABLET 5 MG PO (08:33)
[2023-08-31] MEDS: CARVEDILOL 3.125MG TABLET 3.125 MG PO (08:33)
--- NOTE | 2023-08-31 09:06 | EXP.CARD.PN ---
Subjective Subjective Date: 08/31/23 Time: 08:15 Principal diagnosis: unstable angina Interval history: Patient continues to complain of intermittent left-sided chest pain radiating to left arm. Vitals remained stable. Morning labs reviewed, serial troponins remain negative. Exam Data for Last 24 hours Vital signs and Labs for Last 24 Hours: Temp Pulse Resp BP Pulse Ox O2 Del Method 97.6 F 81 18 131/93 H 96 Room Air 08/31/23 07:46 08/31/23 07:46 08/31/23 07:46 08/31/23 07:46 08/31/23 07:46 08/31/23 07:46 Laboratory Results - last 24 hr 08/30/23 12:30: WBC 8.2, RBC 5.19, Hgb 16.7, Hct 47.5, MCV 91.6, MCH 32.2 H, MCHC 35.2, RDW 13.3, Plt Count 198, MPV 9.1, Neut % (Auto) 53.4, Lymph % (Auto) 34.9, [place] % (Auto) 4.3, Eos % (Auto) 6.7, Baso % (Auto) 0.7, Neut # (Auto) 4.4, Lymph # (Auto) 2.9, [place] # (Auto) 0.4, Eos # (Auto) 0.6 H, Baso # (Auto) 0.1, Sodium 134 L, Potassium 3.8, Chloride 100, Carbon Dioxide 25, Anion Gap 12.8, BUN 16, Creatinine 0.90, Estimated Creat Clear 91, Estimated GFR 84, Est GFR ( Amer) 102, Glucose 265 H, Hemoglobin A1c 7.0 H, Calcium 9.4, Total Bilirubin 1.1, AST 67 H, ALT 51, Alkaline Phosphatase 63, Troponin I < 0.01, Total Protein 8.5 H, Albumin 5.1 H, Globulin 3.4 H, Albumin/Globulin Ratio 1.5 08/30/23 15:37: Troponin I < 0.01, TSH 0.44 L 08/30/23 18:39: Troponin I < 0.01 08/30/23 19:58: POC Glucose 223 H 08/31/23 05:11: POC Glucose 146 H 08/31/23 05:58: WBC 8.5, RBC 4.80, Hgb 15.7, Hct 43.7, MCV 91.1, MCH 32.6 H, MCHC 35.8 H, RDW 13.3, Plt Count 169, MPV 9.3, Neut % (Auto) 51.9, Lymph % (Auto) 35.3, [place] % (Auto) 5.9, Eos % (Auto) 6.4, Baso % (Auto) 0.4, Neut # (Auto) 4.4, Lymph # (Auto) 3.0, [place] # (Auto) 0.5, Eos # (Auto) 0.6 H, Baso # (Auto) 0.0, Sodium 138, Potassium 3.6, Chloride 104, Carbon Dioxide 24, Anion Gap 13.6, BUN 16, Creatinine 0.80, Estimated Creat Clear 94, Estimated GFR 97, Est GFR ( Amer) 117, Glucose 150 H D, Calcium 8.9, Magnesium 1.9, Total Bilirubin 1.0, AST 63 H, ALT 47, Alkaline Phosphatase 62, Total Protein 7.3, Albumin 4.4 D, Globulin 2.9, Albumin/Globulin Ratio 1.5 I & O for Last 24 hours: Intake & Output 08/28/23 08/29/23 08/30/23 08/31/23 23:59 23:59 23:59 23:59 Intake Total 360 / 840 480 / 480 Output Total 0 / 0 Balance 360 / 840 479 / 479 Weight 202 lb 9 oz 200 lb Constitutional Constitutional: no acute distress *Routine Respiratory Exam Respiratory: Present CTA bilaterally and symmetric chest movement *Routine Cardiovascular Exam Cardiovascular: Present RRR, Normal S1 and Normal S2 *Routine Abdominal Exam Abdominal: Present soft and normoactive bowel sounds; Absent tenderness *Routine Extremities Exam Extremities: Present full ROM and normal capillary refill; Absent edema *Routine Skin Exam Skin: Present intact, dry and warm Detailed Neck Exam: Thyroids Thyroid: Absent bruit Progress Note: A&P Assessment and plan (1) Angina pectoris, unstable: Status: Acute (2) HTN (hypertension): Status: Acute (3) Hyperlipidemia: Status: Acute (4) Hyperglycemia: Status: Acute Assessment and Plan Assessment and Plan for All Diagnoses:: Unstable angina CCS 3 -Will proceed with left heart catheterization today. Discussed risk versus benefits with patient he is agreeable -Patient will be loaded with aspirin 324 mg p.o. and given Lovenox 1 mg/kg twice daily. Start Coreg 3.125 mg p.o. twice daily and continue atorvastatin 80 mg p.o. daily. -Echocardiogram pending Hypertension -Well-controlled. Continue lisinopril 5 mg p.o. daily Hyperlipidemia -Continue atorvastatin 80 mg p.o. daily CV summary : We will proceed with left heart catheterization today. Echocardiogram is pending.
[2023-08-31 11:30] LABS: POC Glucose,Bedside 142 (70-110)
[2023-08-31] MEDS: HYDROCODONE/APAP 5/325 MG TABLET 1 TAB PO (12:05)
--- NOTE | 2023-08-31 12:37 | PC.NURSE ---
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
[2023-08-31] MEDS: VERAPAMIL 2.5MG/ML 2ML VIAL 2.5 MG IV (13:09)
[2023-08-31] MEDS: NITROGLYCERIN 800MCG/8ML SYR (CATH LAB) 800 MCG IA (13:09)
[2023-08-31] MEDS: diphenhydrAMINE 50MG/ML VIAL 50 MG IV (13:09)
[2023-08-31] MEDS: LIDOCAINE 1% 10ML MDV 20 ML IJ (13:09)
[2023-08-31] MEDS: HEPARIN 1,000 UNITS/ML 10ML VIAL (CATH LAB) 10000 UNIT IV (13:10)
[2023-08-31] MEDS: HEPARIN 1,000 UNITS/500ML NS (CATH LAB) 3000 UNIT IV (13:10)
[2023-08-31] MEDS: 0.9 % SODIUM CHLORIDE 500 ML 25 ML IV (13:10)
[2023-08-31] MEDS: MIDAZOLAM HCL 1MG/1ML 5ML VIAL 1 MG IV (13:20)
[2023-08-31] MEDS: FENTANYL 100MCG/2ML VIAL 50 MCG IV (13:20)
[2023-08-31] MEDS: IOPAMIDOL-370 (76%);100ML BOTTLE 50 ML IV (13:51)
--- NOTE | 2023-08-31 14:24 | P.DS_ITS ---
General Admission date:: 08/30/23 Discharge date: 08/31/23 HPI HPI HPI: Mr. Mary is a 63-year-old male with history significant for hypertension and hyperlipidemia. He presented to the ER complaining of some worsening intermittent chest pain over the past few weeks. On further questioning he reports she actually had pain as remote as a year ago with an episode a month ago who referred to his left arm but resolved and he has not sought treatment prior. Describes the pain is midsternal was in association with shortness of breath pain most common with activity that is relieved by nitroglycerin. Denies any nausea, vomiting, syncope. Workup in the ER with unremarkable EKG, initial troponin negative. Labs fairly unremarkable with no acute abnormalities. Patient reports significant family history of coronary artery disease with both his parents dying from MIs. Denies smoking but does chew regularly. Given his nature of unstable angina and characteristic chest pain, medicine was consulted for admission and cardiology consulted for further evaluation. On arrival to the floor, patient states his chest pain is little bit better. He is eating dinner. Stable on room air Hospital Course Hospital Course Hospital Course: 63-year-old male history of hypertension who presents with unstable angina. Discussed case with ER physician, request admission for cardiology workup and further management. Monitored with serial troponins. Given character of pain and response to nitro, cardiology was consulted and patient was taken for left heart cath. Medically stable for discharge home. Problems addressed during hospitalization as follows: Unstable angina Hypertension Hyperlipidemia -Cardiology consulted, appreciate their recommendations. Taken for left heart cath on 08/31. Findings as follows: IMPRESSION Mild mid vessel LAD myocardial bridge Otherwise normal coronary arteries Normal ejection fraction Normal left ventricular end-diastolic pressure Continue medical management at this time with aspirin 81 mg daily, lisinopril 5 mg daily, increase Lipitor to 80 mg daily. Add carvedilol 3.125 mg twice daily. Echocardiogram obtained showing normal ejection fraction. Plan to follow-up closely with cardiology as an outpatient. Stable for discharge home. Type 2 diabetes -Glucose 265 on initial labs. TSH 0.44, A1c 7.0. On metformin at home. Controlled at goal. Continue metformin at this time. Stable for discharge home. Spent 30 minutes in discharge counseling, discussion with subspecialist, documentation, and direct care with patient. Exam Data for Last 24 hours Vital signs and Labs for Last 24 Hours: Temp Pulse Resp BP Pulse Ox O2 Del Method 97.7 F 82 16 129/76 93 L Room Air 08/31/23 13:48 08/31/23 13:48 08/31/23 13:48 08/31/23 13:48 08/31/23 13:48 08/31/23 13:48 Laboratory Results - last 24 hr 08/30/23 12:30: Hemoglobin A1c 7.0 H 08/30/23 15:37: Troponin I < 0.01, TSH 0.44 L 08/30/23 18:39: Troponin I < 0.01 08/30/23 19:58: POC Glucose 223 H 08/31/23 05:11: POC Glucose 146 H 08/31/23 05:58: WBC 8.5, RBC 4.80, Hgb 15.7, Hct 43.7, MCV 91.1, MCH 32.6 H, MCHC 35.8 H, RDW 13.3, Plt Count 169, MPV 9.3, Neut % (Auto) 51.9, Lymph % (Auto) 35.3, [place] % (Auto) 5.9, Eos % (Auto) 6.4, Baso % (Auto) 0.4, Neut # (Auto) 4.4, Lymph # (Auto) 3.0, [place] # (Auto) 0.5, Eos # (Auto) 0.6 H, Baso # (Auto) 0.0, Sodium 138, Potassium 3.6, Chloride 104, Carbon Dioxide 24, Anion Gap 13.6, BUN 16, Creatinine 0.80, Estimated Creat Clear 94, Estimated GFR 97, Est GFR ( Amer) 117, Glucose 150 H D, Calcium 8.9, Magnesium 1.9, Total Bilirubin 1.0, AST 63 H, ALT 47, Alkaline Phosphatase 62, Total Protein 7.3, Albumin 4.4 D, Globulin 2.9, Albumin/Globulin Ratio 1.5 08/31/23 11:22: POC Glucose 142 H I & O for Last 24 hours: Intake & Output 08/28/23 08/29/23 08/30/23 08/31/23 23:59 23:59 23:59 23:59 Intake Total 360 / 840 480 / 480 Output Total 0 / 0 Balance 360 / 840 479 / 479 Weight 91.881 kg 90.718 kg Constitutional Constitutional: no acute distress *Routine HEENT Exam Head: Present normocephalic Eye: Present EOMI and PERRL ENT: Present mucous membranes moist *Routine Neck Exam Neck: Present supple; Absent lymphadenopathy *Routine Respiratory Exam Respiratory: Present CTA bilaterally *Routine Cardiovascular Exam Cardiovascular: Present RRR *Routine Abdominal Exam Abdominal: Present soft and normoactive bowel sounds; Absent tenderness *Routine Extremities Exam Extremities: Absent cyanosis, clubbing or edema *Routine Skin Exam Skin: Present warm; Absent rash *Routine Neurological Exam Neurological: Present alert and oriented X3 Results Data Completed and Pending Labs on day of discharge: Labs from last 24 hours 08/31/23 08/31/23 08/31/23 11:22 05:58 05:11 WBC 8.5 RBC 4.80 Hgb 15.7 Hct 43.7 MCV 91.1 MCH 32.6 H MCHC 35.8 H RDW 13.3 Plt Count 169 MPV 9.3 Neut % (Auto) 51.9 Lymph % (Auto) 35.3 [place] % (Auto) 5.9 Eos % (Auto) 6.4 Baso % (Auto) 0.4 Neut # (Auto) 4.4 Lymph # (Auto) 3.0 [place] # (Auto) 0.5 Eos # (Auto) 0.6 H Baso # (Auto) 0.0 Sodium 138 Potassium 3.6 Chloride 104 Carbon Dioxide 24 Anion Gap 13.6 BUN 16 Creatinine 0.80 Estimated Creat Clear 94 Estimated GFR 97 Est GFR ( Amer) 117 Glucose 150 H D POC Glucose 142 H 146 H Hemoglobin A1c Calcium 8.9 Magnesium 1.9 Total Bilirubin 1.0 AST 63 H ALT 47 Alkaline Phosphatase 62 Troponin I Total Protein 7.3 Albumin 4.4 D Globulin 2.9 Albumin/Globulin Ratio 1.5 TSH 08/30/23 08/30/23 08/30/23 19:58 18:39 15:37 WBC RBC Hgb Hct MCV MCH MCHC RDW Plt Count MPV Neut % (Auto) Lymph % (Auto) [place] % (Auto) Eos % (Auto) Baso % (Auto) Neut # (Auto) Lymph # (Auto) [place] # (Auto) Eos # (Auto) Baso # (Auto) Sodium Potassium Chloride Carbon Dioxide Anion Gap BUN Creatinine Estimated Creat Clear Estimated GFR Est GFR ( Amer) Glucose POC Glucose 223 H Hemoglobin A1c Calcium Magnesium Total Bilirubin AST ALT Alkaline Phosphatase Troponin I < 0.01 < 0.01 Total Protein Albumin Globulin Albumin/Globulin Ratio TSH 0.44 L 08/30/23 12:30 WBC RBC Hgb Hct MCV MCH MCHC RDW Plt Count MPV Neut % (Auto) Lymph % (Auto) [place] % (Auto) Eos % (Auto) Baso % (Auto) Neut # (Auto) Lymph # (Auto) [place] # (Auto) Eos # (Auto) Baso # (Auto) Sodium Potassium Chloride Carbon Dioxide Anion Gap BUN Creatinine Estimated Creat Clear Estimated GFR Est GFR ( Amer) Glucose POC Glucose Hemoglobin A1c 7.0 H Calcium Magnesium Total Bilirubin AST ALT Alkaline Phosphatase Troponin I Total Protein Albumin Globulin Albumin/Globulin Ratio TSH DS: Diagnosis Discharge Diagnosis (1) Angina pectoris, unstable: Status: Acute Code(s): I20.0 - Unstable angina (2) HTN (hypertension): Status: Acute Code(s): I10 - Essential (primary) hypertension (3) Hyperlipidemia: Status: Acute Code(s): E78.5 - Hyperlipidemia, unspecified (4) Hyperglycemia: Status: Acute Code(s): R73.9 - Hyperglycemia, unspecified Meds Home Medications and Allergies Home Medications Medication Instructions Recorded Confirmed Type hydrocodone 5 mg-acetaminophen 325 1 tab PO Q6HP PRN Moderate To 06/17/19 08/30/23 Rx mg tablet Severe Pain #8 tabs lisinopril 5 mg tablet 5 mg PO DAILY High blood pressure 11/29/22 08/30/23 History meloxicam 15 mg tablet 15 mg PO HS Pain 11/29/22 08/30/23 History metformin 500 mg tablet,extended 500 mg PO HS Diabetes 11/29/22 08/30/23 History release 24 hr aspirin 81 mg tablet,delayed 81 mg PO DAILY 08/30/23 08/30/23 History release diphenhydramine HCl 12.5 mg/5 mL 12.5 mg PO HS PRN Sleep 08/30/23 08/30/23 History oral elixir gabapentin 400 mg capsule See Rx Instructions .Route .COMPLEX 08/30/23 08/30/23 History magnesium 200 mg tablet 400 mg PO DAILY 08/30/23 08/30/23 History melatonin 10 mg tablet 10 mg PO HS PRN Sleep 08/30/23 08/30/23 History omeprazole 40 mg capsule,delayed 40 mg PO DAILY 08/30/23 08/30/23 History release tizanidine 2 mg capsule 15 mg PO HS 08/30/23 08/30/23 History atorvastatin 80 mg tablet 80 mg PO DAILY High cholesterol 30 08/31/23 Rx days #30 tabs carvedilol 3.125 mg tablet 3.125 mg PO BID 30 days #60 tabs 08/31/23 Rx New Prescriptions to Start Prescriptions: atorvastatin Gustavo Romero carvedilol Gustavo Romero Allergies Allergy/AdvReac Type Severity Reaction Status Date / Time azithromycin Allergy Verified 08/30/23 12:36 erythromycin base Allergy Verified 08/30/23 12:36 Discharge Plan Disposition Patient Disposition: Home, Self-Care Condition: Fair Follow up Plan Follow up with: Babak Valentin MD [Staff Physician] - Enter time for follow up Prescriptions/Medication Reconciliation: New carvedilol 3.125 mg Tablet 3.125 mg PO BID 30 Days Qty: 60 0RF Continued hydrocodone-acetaminophen 1 TAB tablet 1 tab PO Q6HP PRN (Reason: Moderate To Severe Pain) Qty: 8 0RF meloxicam 15 mg tablet 15 mg PO HS lisinopril 5 mg tablet 5 mg PO DAILY metformin 500 mg tablet extended release 24 hr 500 mg PO HS gabapentin 400 mg capsule See Rx Instructions .ROUTE .COMPLEX Rx Instructions: Tale 1 tablet in morning, 1 tablet in afternoon, and 2 tablet at night omeprazole 40 mg capsule,delayed release(DR/EC) 40 mg PO DAILY aspirin 81 mg Tablet,Delayed Release (Dr/Ec) 81 mg PO DAILY diphenhydramine HCl 12.5 mg/5 mL Elixir 12.5 mg PO HS PRN (Reason: Sleep) magnesium 200 mg Tablet 400 mg PO DAILY tizanidine 2 mg Capsule 15 mg PO HS melatonin 10 mg Tablet 10 mg PO HS PRN (Reason: Sleep) Changed atorvastatin 80 mg tablet 80 mg PO DAILY 30 Days Qty: 30 0RF Rx Instructions: Take 1/2 tablet at night Problem Reconciliation Problems Reviewed?: Yes Patient Discharge Instructions ACTIVITY: Continue current activity DIET: continue same diet and low fat, low cholesterol Patient Instructions: Angina, Cardiac Catheterization, DI for Angina, DI for Cardiac Catheterization, DI for Surgical Site Infection Providers Primary Care Provider: Provider,Referral Admit Provider: Gustavo Romero Attending Provider: Gustavo Romero
--- NOTE | 2023-09-01 13:22 | CARE MANAGER ---
Patient states he is doing well. He denies questions or concerns and is aware of follow up appointment. He also receieved meds. ADALID Hawkins
== END 2023-08-31 17:25 | disposition home or self-care (01) ==
LOC: ER 13:29 → 2ND 14:47
PROVIDERS: Internal Medicine; Admitting Provider Internal Medicine Adolescent Medicine; Emergency Provider Emergency Medicine; Visit Provider Internal Medicine Adolescent Medicine
DX: I25.110 Atherosclerotic heart disease of native coronary artery with unstable angina pectoris (principal); I10 Essential (primary) hypertension; E78.5 Hyperlipidemia, unspecified; F17.220 Nicotine dependence, chewing tobacco, uncomplicated; E11.65 Type 2 diabetes mellitus with hyperglycemia; Z79.899 Other long term (current) drug therapy
CPT/HCPCS: 36415; 71045; 80053; 82962; 83036; 83735; 84443; 84484; 85025; 93005; 93306; 93458; 99152; 99285; C1725; C1769; G0378; J1644; Q9967

== ENCOUNTER 2024-05-20 10:28 | Day surgery (SDC) | payer MEDICARE, OTHER, SELFPAY ==
[2024-05-10 13:27] VITALS: BMI 30.5
[2024-05-20] MEDS: LACTATED RINGERS 1000ML 1,000 ML 25 ML IV (10:44)
[2024-05-20 10:54] VITALS: BP 150/95; PULSE 66; RESP 18; TEMP 36.7; O2SAT 98
--- NOTE | 2024-05-20 11:03 | P.PNANES_ITS ---
[facility] Disclaimer: The information contained in this section may have been updated after the patient was seen, as this information can be updated by other users. Medical History Diabetes Dysphagia Dyspnea on exertion Dyspnea Surgical History History of radiofrequency ablation (RFA) of nerve of lumbar spine Family History Other Asthma Heart attack Hypertension Stroke Social History Smoking Status: Never smoker alcohol intake: never substance use type: denies use current occupational status: employed Travel in the last 8 weeks: None [facility] Anesthesia Checklist Patient Identification Patient Identification: Arm Band and Verbal (Name & ) Structural Data Admitted From: Home Planned Operative Procedure/s: EGD Consent for Planned Operative Procedure(s) Verified: Yes Verified Documents: Surgical Consent and History and Physical NPO Status Verified Time NPO: 00:00 Additional verifications Anesthesia Reactions: No Airway Assessment Mallampati Score:: Class III C-Spine Mobility Assessed: Yes TMJ Mobility Assessed: Yes Dentition: Edentulous Neurological Assessment Level of Consciousness: Awake Hx Seizures: No Numbness or tingling in extremities: No Anesthesia Plan Anesthesia Risk discussed: Yes Anesthesia Plan: Verified ASA Class: IV Anesthesia Type: MAC
[2024-05-20 11:04] LABS: POC Glucose,Bedside 117 (70-110)
[2024-05-20 11:48] VITALS: O2SAT 100
--- NOTE | 2024-05-20 12:06 | P.PCN_ITS ---
[facility] Procedure Note Date: 05/20/24 Time: 12:06 Procedure Note:: Upper Endoscopy Procedure Report: Esophagogastroduodenoscopy with cold biopsies and TTS balloon dilation Endoscopost: Vasiliy Coker II, MD Referring Physician: Salty Sadler MD Date of Procedure: May 20, 2024 Equipment: Olympus GIF 190 standard upper endoscope Sedation: MAC sedation Indications: Mr. Mary is a 63-year-old gentleman who is here for diagnostic evaluation of his noncardiac chest pain. He also has a history of EPI and is on Creon. The patient has had a full cardiac evaluation including cardiac stress testing and cardiac catheterization and does not have coronary artery disease. The patient reports no significant heartburn or reflux. He does state that his chest pain is relieved by sublingual nitroglycerin. He has the chest pain almost every other day. He reports no bloating, belching or dyspepsia. He does have dysphagia to solids (breads and meats). He does state that he had an EGD after going to the emergency department in [place] 15 years ago with a meat impaction. Procedure: Prior to the procedure, a history and physical exam was performed, and patient's medications and allergies were reviewed. The risks, benefits and alternatives of the sedation and procedure were discussed with the patient. All questions were answered and informed consent was obtained. The patient was brought to the procedure room. Patient identification and proposed procedure were verified by the physician and the nurse. The patient was placed in a left lateral decubitus position and the scope was passed under direct vision. Throughout the procedure, the patient's blood pressure, pulse, and oxygen saturations were monitored continuously. The upper GI endoscopy was accomplished without difficulty. The patient tolerated the procedure well. Findings: The scope was passed directly into the upper esophagus and advanced to the third portion of the duodenum. The post bulbar duodenum and duodenal bulb were normal with normal mucosa and conniventes. The scope was withdrawn through a normal duodenal bulb and pylorus into the stomach. There was some mild linear reactive gastropathy of the prepyloric antrum. There was a micronodular pattern to the body and fundus and biopsies were obtained to rule out H. pylori. The remainder of the antrum, body and fundus of the stomach were grossly normal. Upon retroflexion there was a very small 1 to 2 cm hiatal hernia. 2 biopsies were taken in the antrum and along the lesser curvature for histology to rule out gastritis and/or H pylori. The scope was then withdrawn into the esophagus. There was no evidence of reflux esophagitis or Solomon's. There was a distal Schatzki's ring. The Schatzki's ring was dilated to 20 mm with a TTS hydrostatic balloon with shattering of the Schatzki's ring. There were mild tertiary contractions and mild evidence of esophageal dysmotility. The remainder of the esophageal mucosa was normal. Impression: 1. Schatzki's ring dilated to 20 mm 2. Nonerosive GERD with mild to moderate esophageal dysmotility and very small sliding 1 to 2 cm hiatal hernia 3. Mild linear reactive gastropathy of prepyloric antrum Plan: The patient does have noncardiac chest pain which may very well be esophageal chest pain from hypersensitivity or esophageal spasm. We will discuss additional treatment options. Because of this and his exocrine pancreatic insufficiency, I would also like for him to follow-up in the office subsequently.
[2024-05-20 12:08] VITALS: BP 124/74; PULSE 74; RESP 16; TEMP 36.2; O2SAT 94
[2024-05-20 12:18] VITALS: BP 130/74; PULSE 66; RESP 16; O2SAT 94
[2024-05-20 12:28] VITALS: BP 135/84; BP 143/73; PULSE 62; PULSE 65; RESP 16; RESP 18; O2SAT 97; O2SAT 98
== END 2024-05-20 13:00 | disposition home or self-care (01) ==
PROVIDERS: PCP Family Medicine; Visit Provider Internal Medicine Gastroenterology
PROC: 0DJ08ZZ Inspection of Upper Intestinal Tract, Via Natural or Artificial Opening Endoscopic (ICD-10-PCS; CPT 43235; principal; 2024-05-20 13:00)
DX: R07.89 Other chest pain (principal); R13.10 Dysphagia, unspecified; K21.9 Gastro-esophageal reflux disease without esophagitis; K44.9 Diaphragmatic hernia without obstruction or gangrene; K31.9 Disease of stomach and duodenum, unspecified
CPT/HCPCS: 43239; 43249; 82962; 88305; C1726; J7120

== ENCOUNTER 2024-11-05 09:27 | Outpatient (CLI) | payer MEDICARE, SELFPAY ==
[2024-11-05 09:50] LABS: Basophils % 0.5 % (0.1-2.0); Eosinophils # 0.2 K/mm3 (0.0-0.4); Eosinophils % 2.7 % (0.1-12.0); Hematocrit 42.1 % (42.0-52.0); Hemoglobin 14.8 g/dL (14.1-18.0); Lymphocytes # 2.3 K/mm3 (0.7-4.5); Lymphocytes % 26.3 % (10-50); Mean Corpuscular HGB Conc 35.2 g/dL (31.8-35.4); Mean Corpuscular Hemoglobin 31.7 pg (27.0-31.2); Mean Corpuscular Volume 90.1 fl (80-94); Mean Platelet Volume 10.4 fl (7.4-10.4); Monocytes # 0.6 K/mm3 (0.1-1.0); Monocytes % 7.3 % (1.7-9.3); Neutrophils # 5.3 K/mm3 (1.8-7.8); Neutrophils % 61.8 % (37.0-80.0); Platelet Count 253 K/mm3 (142-424); Red Blood Count 4.67 M/mm3 (4.60-6.20); White Blood Count 8.6 K/mm3 (4.8-10.8)
[2024-11-05 10:16] LABS: Alanine Aminotransferase 32 U/L (12-78); Albumin Level 4.7 g/dl (3.5-5.0); Alkaline Phosphatase 60 U/L (38-126); Anion Gap 11.1 mEq/L (5-15); Aspartate Amino Transferase 39 U/L (17-59); Bilirubin,Direct 0.5 mg/dl (0.0-0.4); Bilirubin,Indirect 0.4 mg/dL (0.0-0.9); Bilirubin,Total 0.9 mg/dl (0.2-1.3); Bilirubin,Unconjugated 0.4 mg/dL (0.0-1.1); Blood Urea Nitrogen 15 mg/dl (9-20); Calcium 9.5 mg/dl (8.4-10.2); Carbon Dioxide 29 mmol/L (22.0-30.0); Chloride 105 mmol/L (98-107); Chol/HDL Ratio 2.7 (1-3.5); Cholesterol 111 mg/dl (140-200); Estimated Glomerular Filt Rate 113 ml/min (>60); GFR (African American) 137 ML/MIN (>60); Glucose 148 mg/dl (74-100); HDL Cholesterol 41 mg/dl (40-60); Magnesium 1.9 mg/dl (1.6-2.3); Potassium 4.1 mmoL/L (3.5-5.1); Sodium 141 mmol/L (136-145); Triglycerides 230 mg/dl (30-150); VLDL Cholesterol 46 mg/dL (0-40)
[2024-11-05 10:26] LABS: Direct LDL Cholesterol 33.12 mg/dL (100-129)
[2024-11-05 10:30] LABS: Free T4 (Free Thyroxine) 1.21 ng/dl (0.78-2.19)
[2024-11-05 10:44] LABS: Thyroid Stimulating Hormone 0.24 uIU/mL (0.465-4.68)
== END 2024-11-05 23:59 | disposition home or self-care (01) ==
LOC: LAB 09:28
PROVIDERS: PCP Family Medicine; Visit Provider Physician Assistant
DX: R73.9 Hyperglycemia, unspecified (principal); E78.5 Hyperlipidemia, unspecified; I10 Essential (primary) hypertension
CPT/HCPCS: 36415; 80048; 80061; 80076; 83735; 84439; 84443; 85025

== ENCOUNTER 2025-01-28 10:12 | Outpatient (CLI) | payer MEDICARE, OTHER, SELFPAY ==
[2025-01-28 11:31] LABS: Free T4 (Free Thyroxine) 1.15 ng/dl (0.78-2.19)
[2025-01-28 11:47] LABS: Thyroid Stimulating Hormone 0.31 uIU/mL (0.465-4.68)
== END 2025-01-28 23:59 | disposition home or self-care (01) ==
LOC: LAB 10:13
PROVIDERS: PCP Family Medicine; Visit Provider Nurse Practitioner
DX: E05.90 Thyrotoxicosis, unspecified without thyrotoxic crisis or storm (principal)
CPT/HCPCS: 36415; 84439; 84443

== ENCOUNTER 2025-01-31 09:08 | Outpatient (CLI) | payer MEDICARE, OTHER, SELFPAY ==
--- NOTE | 2025-01-31 09:15 | CT_ITS ---
FINAL REPORT TECHNIQUE: Pre- and postcontrast images of the abdomen were performed by computed tomography. Multiplanar reconstructions in the sagittal and coronal planes were performed. This study was performed with techniques to keep radiation doses as low as reasonably achievable (ALARA). Individualized dose reduction techniques using automated exposure control or adjustment of mA and/or kV according to the patient's size were employed. CLINICAL HISTORY: Exocrine pancreatic insufficiency K86.81 Screening for malignant neoplasm of colon Z12.11 COMPARISON: None FINDINGS: CT ABDOMEN WITH AND WITHOUT CONTRAST: Precontrast-enhanced images reveal multiple bilateral nonobstructing renal stones, measuring up to 4 mm in size in the left kidney. The lung bases are clear. Moderate fatty infiltration of the liver is present. The gallbladder is present. Calcified granulomas are noted in the spleen, and there is mild splenomegaly, with a craniocaudal measurement of 15 cm. The adrenals are normal. The pancreas is unremarkable. Note is made of multiple bilateral renal cysts, the largest measuring up to 1.5 cm in size. The portions of the colon visualized are unremarkable in appearance, although the exam does not include the entire colon. IMPRESSION: Multiple bilateral nonobstructing renal stones as described. Moderate fatty infiltration of the liver without a focal mass. The pancreas is unremarkable in appearance. The portions of the colon visualized are unremarkable, although the exam does not include the entire colon. Reviewed, Interpreted and Dictated by César Lopez MD Transcribed by Haydee Burrows Authenticated and [facility]
[2025-01-31 09:35] LABS: Blood Urea Nitrogen 14 mg/dl (9-20); Estimated Glomerular Filt Rate 97 ml/min (>60); GFR (African American) 117 ML/MIN (>60)
[2025-01-31] MEDS: SODIUM CHLORIDE 0.9% 10ML SYR (RAD ONLY) 10 ML IV (09:50)
[2025-01-31] MEDS: IOPAMIDOL-370 (76%);100ML BOTTLE 75 ML IV (09:50)
== END 2025-01-31 23:59 | disposition home or self-care (01) ==
LOC: RAD 09:08
PROVIDERS: PCP Family Medicine; Visit Provider Nurse Practitioner Family
DX: N20.0 Calculus of kidney (principal); K76.0 Fatty (change of) liver, not elsewhere classified; K86.81 Exocrine pancreatic insufficiency
CPT/HCPCS: 36415; 74170; 82565; 84520; Q9967